=== PATIENT | female | born 1960 | race Caucasian/White ===

== ENCOUNTER → 2023-05-27 13:40 | Outpatient (REF) | payer OTHER, SELFPAY | LOC: RCS 13:40 | PROVIDERS: ATTENDING PHYSICIAN Internal Medicine Cardiovascular Disease; FAMILY PHYSICIAN Nurse Practitioner Family | DX: R07.2 Precordial pain (principal) | CPT/HCPCS: 93017; 93350 ==

== ENCOUNTER 2023-06-14 15:32 | Emergency (ER) | payer OTHER, SELFPAY ==
[2023-06-14 15:36] VITALS: BP 116/66
--- NOTE | 2023-06-14 16:49 | ED.GENMED ---
Addendum entered and electronically signed by Tyler Foster PA-C 06/17/23 07:22:
Urine culture greater than 100,000 colony-forming units of gram-negative bacilli. Treated with Augmentin. Sensitivities pending
Original Note:
History of Present Illness
General
Chief Complaint: Fatigue
Source: patient
Exam Limitations: none
Time Seen by Provider: 06/14/23 16:10
Nursing documentation reviewed up to this point in time: agreed with
Travel History
Have you had any contact with someone who has COVID-19?: No
Do you have any symptoms of coronavirus? Fever > 100 degrees, chills, cough, shortness of breath, sore throat, loss of taste or smell, muscle aches, or headache?: No
History of Present Illness
History of Present Illness:
63-year-old female ex-smoker history of recurrent COVID infections congenital thrombocytopenia worked up in [place] UTIs, ectopic Sjogren's, RA presents with fatigue headache chest pain shortness of breath right flank pain so bad she could
barely get out of bed, no fevers although she tells me she only gets fevers when she is septic, no vomiting, not currently drinking or smoking, states she had some blood work recently her platelet count was low told that she should see a heme-onc
physician tells me she has had tea colored urine, but her kidney stones are on the left not the right
Past History
Past History
ED Past Medical History: Seizures, Psychiatric, Other (Kidney stones RA Sjogren's) and Other (Thrombocytopenia see RN note for further listing of her chronic medical conditions)
ED Past Surgical History: Cholecystectomy and Gynecological
Social History
Tobacco: Non-smoker
Alcohol: None
Drug: None
Employment: Employed
Family History
Family History: Unable to obtain (Thrombocytopenia)
Review of Systems
Review of Systems
All Other Systems: Not applicable
Constitutional: Reports fatigue; Denies fever
EENT: Reports no symptoms
Respiratory: Reports trouble breathing; Denies cough
Cardiac: Reports chest pain; Denies diaphoresis or syncope
: Reports flank pain; Denies frequency or difficulty voiding
Musculoskeletal: Reports no symptoms
Neurological: Reports dizzy, headache and weakness
Endocrine: Reports no symptoms
Phy Exam
Physical Exam
Physical Exam:
Physical Exam
General: 63 female nontoxic stable vitals
Neck: No jaundice no pallor
Heart: s1/s2 regular rate and rhythm, no murmur. equal radial pulses.
Lungs: no acute respiratory distress. clear bilaterally
Abdomen: Nontender
Neuro: alert and oriented. no focal neurological deficits
Skin: no rash
Psychiatric: well kept. interactive and cooperative
Extremities: no edema.
Course
Orders/Labs/Results
Orders:
Orders
06/14/23 16:41
Electrocardiogram (*1) Urgent
Reason for Study: Palpitations
EKG- Treatment ONCE
CR Chest - 2 Views Urgent
Comment:
Reason For Exam: sob
06/14/23 17:01
CPK [Creatine Phosphokinase] Urgent
CRP [C-Reactive Protein] Urgent
Complete Blood Count/With Diff Urgent
Comprehensive Metabolic Panel Urgent
D-Dimer Urgent
ESR [Erythrocyte Sed Rate] Urgent
Troponin I Urgent
06/14/23 17:03
0.9% Sodium Chloride 1000 ml [Nss] 1,000 ml IV BOLUS
Acetaminophen [Tylenol] 650 mg PO NOW STA
06/14/23 19:27
CT Head W/o Iv Contrast Urgent
Comment:
Reason For Exam: headache
06/14/23 19:28
Acetaminophen 1000MG/100Ml [Ofirmev] 1,000 mg in 100 ml IV ONCE
Acetaminophen IV Indication:: No WI & No Enteral Access
06/14/23 19:32
CT Abd/pel Without Iv Or Oral Urgent
Comment:
Reason For Exam: flakn pain
Promethazine [Phenergan] 25 mg 0.9% Sodium Chloride 50 ml [Nss] 50 ml IV NOW
06/14/23 20:51
Urinalysis Reflex To Culture Urgent
Date Specimen was Collected: 06/14/23
Time Specimen was Collected: 16:42
Urine Microscopic Reflex Cult Urgent
Urine Culture Urgent
BAKARI Source: U
Specimen Description:
Date Specimen was Collected: 06/14/23
Time Specimen was Collected: 16:42
Abnormal Lab Results
06/14/23 06/14/23
17:01 20:51
RBC 3.52 L 10^6/uL
(4.20-5.40)
Hgb 11.6 L g/dL
(12.0-16.0)
Hct 33.4 L %
(37.0-47.0)
MCH 33.0 H pg
(27.0-31.0)
Plt Count 69 L 10^3/uL
(130-400)
MPV 12.0 H fL
(7.4-10.4)
ESR 44 H mm/hour
(0-20)
BUN 18 H mg/dl
(7-17)
Glucose 120 H mg/dl
(70-99)
Urine Nitrite (Reflex) Positive A
(Negative)
Leukocyte Esterase Rfl 2+ A
(Negative)
Urine WBC (Reflex) 60-70 A /HPF
(0-5)
Urine Bacteria (Reflex) Many A
(Negative)
06/14/23 17:01
06/14/23 17:01
Vital Signs
Initial and Last Documented VS:
Initial Vital Signs
Temp Pulse Resp BP Pulse Ox
98.0 F 73 18 116/66 99
06/14/23 15:36 06/14/23 15:36 06/14/23 15:36 06/14/23 15:36 06/14/23 15:36
Last Documented Vital Signs
Temp Pulse Resp BP Pulse Ox
98.0 F 75 17 110/67 97
06/14/23 15:36 06/14/23 20:07 06/14/23 19:00 06/14/23 19:00 06/14/23 19:45
MDM/Problems Addressed
Differential Diagnosis Includes:
Differential is wide anemia thrombocytopenia electrolyte abnormality rhabdo ACS PE other
MDM/Problems Addressed:
Fatigue
Chronic conditions affecting care:
Thrombocytopenia RA
Acute Exacerbation and/or Progression of Chronic Illness:
Thrombocytopenia RA
*Pulse Oximetry
Patient hypoxic: no
*EKG
Interpreted by ED Provider?: Yes
Interpretation: normal
Comparison EKG: no comparison EKG present
Heart Rate: 78
Rate: normal
Rhythm: sinus
Ischemia: no ischemia
*Caddie Supervisor Interpretation
Rate: normal
Interpretation: normal
Heart Rate: 78
Rhythm: sinus
*Critical Care Note
Total Time (30-74mins, 75-104mins- exclusive of procedures): Not Applicable
Update Note
Update Note:
7:30 PM labs noted including platelets patient states she feels no better she has a headache she is not eating or drinking she has pain in her kidneys she has not urinated yet states she cannot take any p.o. meds requesting IV meds
Will try IV Tylenol and Phenergan, check CT of the head
10 PM imaging noted urine noted culture pending will start her antibiotics
ED Attending Note
-
Portions of this chart may have been created with voice recognition software.� Occasional wrong word or��sound alike� substitutions may have occurred due to the inherent limitations of voice recognition software.
Discharge Plan
Departure
Patient Disposition: Home (Routine Discharge)
Date of Disposition: 06/14/23
Time of Disposition: 22:02
Patient with high blood pressure during this ER visit?: No
Condition: Good
Discharge Problem:
UTI (urinary tract infection)
Instructions: Fatigue (DC), Urinary Tract Infection, Adult (DC)
Prescriptions:
New
amoxicillin-pot clavulanate 875-125 mg tablet
1 tab PO ONCE Qty: 20 0RF
No Action
clonazepam 1 mg tablet
1 mg PO BID
Patient Comments:
09/07/2022: last filled 08/06/22, 60 tabs for 30 days from [id number]
Rx Instructions:
Usually patient only takes it once a day-per patient
propranolol 60 mg tablet
60 mg PO TID
Rx Instructions:
pt has a script for 40mg TID, but is currently taking the 60mg
oxycodone 5 mg Tablet
5 mg PO Q4HPRN PRN (Reason: moderate pain) Qty: 30 0RF
levofloxacin 750 mg Tablet
750 mg PO DAILY Qty: 16 0RF
Rx Instructions:
last dose 09/28.
phenazopyridine 200 mg tablet
200 mg PO Q8
Referrals:
Mary Gilliland CRNP [Family Provider] -
Interventions
Interventions:
*Risk Screen - Suicide Last Done: 06/14/23 17:15
*General Assessment Last Done: 06/14/23 15:36
*Neglect/Abuse Screening Last Done: 06/14/23 17:15
ED- Fall Risk Assessment Last Done: 06/14/23 17:15
*ED COVID-19 Vaccine History Last Done: 06/14/23 15:36
[2023-06-14 16:56] VITALS: BMI 24.2
[2023-06-14 17:08] LABS: % Basophils 0.4 % (0-2); % Eosinophils 1.4 % (0-6); % Immature Granulocytes 0.4 % (0-0.5); % Lymphocytes 31.1 % (20.5-51.1); % Monocytes 8.6 % (1.7-9.3); % Neutrophils 58.1 % (42.2-75.2); Absolute Eosinophils 0.1 10^3/uL (0-0.7); Absolute Lymphocytes 1.6 10^3/uL (1.2-3.4); Absolute Monocytes 0.4 10^3/uL (0.1-0.6); Absolute Neutrophils 2.9 10^3/uL (1.4-6.5); Hematocrit 33.4 % (37.0-47.0); Hemoglobin 11.6 g/dL (12.0-16.0); Mean Corp Hgb Conc. 34.7 g/dL (33.0-37.0); Mean Corpuscular Volume 94.9 fL (81.0-99.0); Nucleated Red Blood Cells % 0 %; Red Blood Cell Count 3.52 10^6/uL (4.20-5.40); Red Cell Dist. Width 13.2 % (11.5-14.5)
[2023-06-14] MEDS: NSS 1000 IV (17:09)
[2023-06-14 17:18] LABS: Erythrocyte Sed Rate 44 mm/hour (0-20)
[2023-06-14 17:24] LABS: D-Dimer 0.44 ug/mlFEU (0.00-0.50)
[2023-06-14 17:29] LABS: C-Reactive Protein < 5.00 mg/L (0.0-10.00)
[2023-06-14 17:33] LABS: ALT (SGPT) 19 U/L (0-35); AST (SGOT) 35 U/L (14-36); Albumin 4.2 g/dl (3.5-5.0); Alkaline Phosphatase 57 U/L (38-126); Blood Urea Nitrogen 18 mg/dl (7-17); Calcium 8.9 mg/dl (8.4-10.2); Carbon Dioxide 26 mmol/L (22-30); Chloride 107 mmol/L (98-107); Creatine Phosphokinase 39 U/L (30-135); Estimated Creatinine Clearance 48 ml/min; Glucose 120 mg/dl (70-99); Sodium 139 mmol/L (135-145); Total Bilirubin 0.7 mg/dl (0.2-1.3); Total Protein 7.7 g/dl (6.3-8.2); Troponin I < 0.012 ng/ml; eGFR > 60.00
[2023-06-14 17:35] LABS: Comment LSLR; Platelet Count 69 10^3/uL (130-400)
[2023-06-14 18:28] VITALS: BP 103/86
[2023-06-14 19:00] VITALS: BP 110/67
[2023-06-14] MEDS: PHENERGAN 51 MG IV (20:04)
[2023-06-14] MEDS: OFIRMEV 100 IV (20:04)
[2023-06-14 20:12] LABS: Glucose - Point of Care 90 mg/dl (70-99)
[2023-06-14 21:03] LABS: Urine Albumin Trace (Neg - Trace); Urine Bilirubin Negative (Negative); Urine Character Clear (Clear); Urine Color Yellow; Urine Glucose Negative (Negative); Urine Ketone Negative (Negative); Urine Leukocyte 2+ (Negative); Urine Nitrite Positive (Negative); Urine Occult Blood Negative (Negative); Urine Specific Gravity 1.015 (<1.030); Urine Urobilinogen Negative (Neg - 1+)
[2023-06-14 21:18] LABS: Urine White Cell 60-70 /HPF (0-5)
[2023-06-14 21:19] LABS: Urine Bacteria Many (Negative); Urine Red Blood Cell None Seen /HPF (0-2)
[2023-06-14 22:02] VITALS: BP 124/63
[2023-06-14 22:03] VITALS: BP 112/62
== END 2023-06-14 22:18 | disposition home or self-care (01) ==
LOC: EMR 15:32
PROVIDERS: EMERGENCY PHYSICIAN Emergency Medicine; FAMILY PHYSICIAN Nurse Practitioner Family
DX: N39.0 Urinary tract infection, site not specified (principal); D69.42 Congenital and hereditary thrombocytopenia purpura; M06.9 Rheumatoid arthritis, unspecified
CPT/HCPCS: 99285; 96365; 96375; 96361; 70450; 71046; 74176; 80053; 81003; 81015; 82550; 82962; 84484; 85025; 85379; 85652; 86140; 87077; 87086; 87186; 93005

== ENCOUNTER 2023-08-03 09:54 | Emergency (ER) | payer OTHER, SELFPAY ==
[2023-08-03 09:57] VITALS: BP 123/59
[2023-08-03 10:17] VITALS: BMI 24.1
--- NOTE | 2023-08-03 10:30 | ED.GENMED ---
History of Present Illness
<TK Burciaga - Last Filed: 08/03/23 14:52>
General
Chief Complaint: Skin Problem
Source: patient
Exam Limitations: none
Time Seen by Provider: 08/03/23 10:08
Nursing documentation reviewed up to this point in time: agreed with
Travel History
Have you had any contact with someone who has COVID-19?: No
Do you have any symptoms of coronavirus? Fever > 100 degrees, chills, cough, shortness of breath, sore throat, loss of taste or smell, muscle aches, or headache?: No
History of Present Illness
History of Present Illness:
Patient is a 63-year-old female presents to the ER sent by her family doctor. Patient reports 1 week ago (Thursday ) she received shingles vaccine and the following day Thursday morning she developed a fever at 5 AM and since then she has had
persistent fevers highest 104.7 this am . She complains of intense pain to the left upper arm, at the site of the vaccine and feels not well. She denies any runny nose cough congestion denies any URI symptoms. She has some lower abdominal
discomfort and is concerned she may have a UTI as well. She was seen by her family doctor and sent here to the ER. She did take ibuprofen this morning
Past History
<TK Burciaga - Last Filed: 08/03/23 14:52>
Past History
ED Past Medical History: Seizures, Psychiatric, Other (Kidney stones RA Sjogren's) and Other (Thrombocytopenia see RN note for further listing of her chronic medical conditions)
ED Past Surgical History: Cholecystectomy and Gynecological
Social History
Tobacco: Non-smoker
Alcohol: None
Drug: None
Employment: Employed
Family History
Family History: Unable to obtain (Thrombocytopenia)
Review of Systems
<TK Burciaga - Last Filed: 08/03/23 14:52>
Review of Systems
Allergies reviewed?: Yes
All Other Systems: ROS reviewed and negative except as documented in HPI and ROS
Constitutional: Reports fever, fatigue and chills
EENT: Reports no symptoms
Respiratory: Reports no symptoms; Denies cough
Cardiac: Reports no symptoms
ABD/GI: Reports no symptoms
: Reports frequency
Musculoskeletal: Reports other (left upper arm pain /swelling/redness )
Skin: Reports other (swelling/tenderness redness to left upper arm )
Neurological: Reports no symptoms
Psychiatric: Reports no symptoms
Phy Exam
<TK Burciaga - Last Filed: 08/03/23 14:52>
General Physical Exam
General Presentation: well appearing
General age: appears stated age
General Skin: warm and dry
General Habitus: normal
General Mental: alert
General Hydration: appears well hydrated
Gastrointestinal Exam
Gastrointestinal Exam: non tender and soft
Neurological Exam
Neurological Exam: alert and oriented x3
Musculoskeletal Exam
Musculoskeletal Exam: other (Left upper arm is mildly swollen red indurated tender throughout upper arm region)
Skin Exam
Skin Exam: normal color and warm/dry
Psychiatric Exam
Psychiatric Exam: normal mood/affect
Course
<TK Burciaga - Last Filed: 08/03/23 14:52>
Orders/Labs/Results
Orders:
Orders
08/03/23 10:31
IV Insert/Care/Rem.- Treatment PRN
08/03/23 10:39
Complete Blood Count/With Diff Urgent
Comprehensive Metabolic Panel Urgent
Lactic Acid Q4H
Comment: CANCEL 2nd LACTIC ACID IF 1st LACTIC ACID IS LESS THAN 2
Blood Culture Q30M
BAKARI Source: Blood/Venous
Specimen Description:
Blood Culture Q30M
BAKARI Source: Blood/Venous
Specimen Description:
08/03/23 12:26
Ketorolac [Toradol] 15 mg IV NOW STA
08/03/23 13:33
Urine Culture Reflexed from UA [Urinalysis Reflex To Culture] Urgent
Date Specimen was Collected: 08/03/23
Time Specimen was Collected: 13:32
Urine Microscopic Reflex Cult Urgent
08/03/23 14:45
Cephalexin Monohydrate [Keflex] 500 mg PO NOW STA
Abnormal Lab Results
08/03/23 08/03/23
10:39 13:33
RBC 3.43 L 10^6/uL
(4.20-5.40)
Hgb 11.4 L g/dL
(12.0-16.0)
Hct 32.2 L %
(37.0-47.0)
MCH 33.2 H pg
(27.0-31.0)
Plt Count 76 L 10^3/uL
(130-400)
MPV 11.8 H fL
(7.4-10.4)
Abs Immat Gran (auto) 0.1 H 10^3/uL
(0-0.05)
Absolute Monos (auto) 0.8 H 10^3/uL
(0.1-0.6)
Immature Gran % 0.9 H %
(0-0.5)
Monocytes % 14.4 H %
(1.7-9.3)
Sodium 134 L mmol/L
(135-145)
Glucose 106 H mg/dl
(70-99)
Urine Bilirubin 1+ A
(Negative)
Leukocyte Esterase Rfl Trace A
(Negative)
08/03/23 10:39
08/03/23 10:39
Vital Signs
Initial and Last Documented VS:
Initial Vital Signs
Temp Pulse Resp BP Pulse Ox
98.6 F 81 18 123/59 96
08/03/23 09:57 08/03/23 09:57 08/03/23 09:57 08/03/23 09:57 08/03/23 09:57
Last Documented Vital Signs
Temp Pulse Resp BP Pulse Ox
98.6 F 82 18 127/72 96
08/03/23 09:57 08/03/23 14:46 08/03/23 14:46 08/03/23 14:46 08/03/23 14:46
Film Crew Member consulted with Physician
Name of Physician Consulted: Lorna
<Lex Rothman, DO - Last Filed: 08/03/23 16:07>
Orders/Labs/Results
Orders:
Orders
08/03/23 10:31
IV Insert/Care/Rem.- Treatment PRN
08/03/23 10:39
Complete Blood Count/With Diff Urgent
Comprehensive Metabolic Panel Urgent
Lactic Acid Q4H
Comment: CANCEL 2nd LACTIC ACID IF 1st LACTIC ACID IS LESS THAN 2
Blood Culture Q30M
BAKARI Source: Blood/Venous
Specimen Description:
Blood Culture Q30M
BAKARI Source: Blood/Venous
Specimen Description:
08/03/23 12:26
Ketorolac [Toradol] 15 mg IV NOW STA
08/03/23 13:33
Urine Culture Reflexed from UA [Urinalysis Reflex To Culture] Urgent
Date Specimen was Collected: 08/03/23
Time Specimen was Collected: 13:32
Urine Microscopic Reflex Cult Urgent
08/03/23 14:45
Cephalexin Monohydrate [Keflex] 500 mg PO NOW STA
Abnormal Lab Results
08/03/23 08/03/23
10:39 13:33
RBC 3.43 L 10^6/uL
(4.20-5.40)
Hgb 11.4 L g/dL
(12.0-16.0)
Hct 32.2 L %
(37.0-47.0)
MCH 33.2 H pg
(27.0-31.0)
Plt Count 76 L 10^3/uL
(130-400)
MPV 11.8 H fL
(7.4-10.4)
Abs Immat Gran (auto) 0.1 H 10^3/uL
(0-0.05)
Absolute Monos (auto) 0.8 H 10^3/uL
(0.1-0.6)
Immature Gran % 0.9 H %
(0-0.5)
Monocytes % 14.4 H %
(1.7-9.3)
Sodium 134 L mmol/L
(135-145)
Glucose 106 H mg/dl
(70-99)
Urine Bilirubin 1+ A
(Negative)
Leukocyte Esterase Rfl Trace A
(Negative)
08/03/23 10:39
08/03/23 10:39
Vital Signs
Initial and Last Documented VS:
Initial Vital Signs
Temp Pulse Resp BP Pulse Ox
98.6 F 81 18 123/59 96
08/03/23 09:57 08/03/23 09:57 08/03/23 09:57 08/03/23 09:57 08/03/23 09:57
Last Documented Vital Signs
Temp Pulse Resp BP Pulse Ox
98.6 F 82 18 127/72 96
08/03/23 09:57 08/03/23 14:46 08/03/23 14:46 08/03/23 14:46 08/03/23 14:46
<TK Burciaga - Last Filed: 08/03/23 14:52>
MDM/Problems Addressed
Differential Diagnosis Includes:
Not limited to cellulitis, abscess, UTI
MDM/Problems Addressed:
As documented patient is a 63-year-old female who presents to the ER complaining of left arm redness swelling since having shingles vaccine the last week. She complains of fevers but is afebrile here and in no acute distress.
Patient has as document redness mild induration swelling of the left upper arm however is afebrile with a normal white count of 5.8. Patient has chronically low platelets.
Urine was checked that she thought she may have UTI. No obvious infection. Case discussed with Dr. Rothman who evaluated patient will DC with warm compresses Mik wrap and Keflex discussed to remove Mik wrap at night. Discussed close outpatient
follow-up family doctor next days for recheck.
<TK Burciaga - Last Filed: 08/03/23 14:52>
*Critical Care Note
Total Time (30-74mins, 75-104mins- exclusive of procedures): Not Applicable
ED Attending Note
<TK Burciaga - Last Filed: 08/03/23 14:52>
-
Portions of this chart may have been created with voice recognition software.� Occasional wrong word or��sound alike� substitutions may have occurred due to the inherent limitations of voice recognition software.
<Lex Rothman DO - Last Filed: 08/03/23 16:07>
ED Attending Note
Patient seen and examined by attending physician: Yes
ED Attending Note:
I have reviewed and agree with patient treatment plan by Sara Estrella. My exam revealed small indurated area on left upper arm. No signs of abscess, possible small hematoma. Stable for discharge.
Discharge Plan
Departure
Patient Disposition: Home (Routine Discharge)
Date of Disposition: 08/03/23
Time of Disposition: 14:48
Patient with high blood pressure during this ER visit?: No
Condition: Fair
Covid-19: Not Applicable
Discharge Problem:
Cellulitis of arm, left
Instructions: Cellulitis (Skin Infection), Adult (DC)
Prescriptions:
New
cephalexin 500 mg capsule
500 mg PO Q6H Qty: 28 0RF
No Action
clonazepam 1 mg Tablet
2 mg PO HS
propranolol 60 mg Tablet
60 mg PO DAILY
propranolol 60 mg Tablet
60 mg PO BID PRN (Reason: high blood pressure)
tramadol 50 mg Tablet
50 mg PO Q6H PRN (Reason: severe pain)
acetaminophen [Tylenol Extra Strength] 500 mg Tablet
1,000 mg PO Q6H PRN (Reason: fever)
methenamine hippurate 1 gram Tablet
1 g PO BID PRN (Reason: UTI)
Patient Comments:
08/03/2023, prescribed BID but pt. states that she takes BIDPRN.
Referrals:
UNKNOWN - PT DOES,NOT KNOW [Family Provider] -
Activity Restrictions/Additional Instructions:
Warm compresses to affected area several times a day. Antibiotic as directed every 6 hours for the next 7 days. This medication was sent to your pharmacy. You may wear Mik wrap for support during the day but remove at night while sleeping.
Follow-up with your family doctor for recheck in the next 2 days for reevaluation return if any worsening of symptoms of increasing pain swelling redness red streaking fever chills or any further concerns
Interventions
Interventions:
*Risk Screen - Suicide Last Done: 08/03/23 10:17
*General Assessment Last Done: 08/03/23 10:17
*Neglect/Abuse Screening Last Done: 08/03/23 10:17
ED- Fall Risk Assessment Last Done: 08/03/23 10:17
*ED COVID-19 Vaccine History Last Done: 08/03/23 10:17
*Nursing Disposition Last Done: 08/03/23 15:06
ED-Skin Assessment Last Done: 08/03/23 10:17
Discharge Date and Time
Discharge Date/Time: 08/03/23 15:07
Print Language: OCCITAN
[2023-08-03 10:57] LABS: % Basophils 0.5 % (0-2); % Immature Granulocytes 0.9 % (0-0.5); % Monocytes 14.4 % (1.7-9.3); % Neutrophils 55.2 % (42.2-75.2); Absolute Eosinophils 0.1 10^3/uL (0-0.7); Absolute Immature Granulocytes 0.1 10^3/uL (0-0.05); Absolute Lymphocytes 1.6 10^3/uL (1.2-3.4); Absolute Monocytes 0.8 10^3/uL (0.1-0.6); Absolute Neutrophils 3.2 10^3/uL (1.4-6.5); Hematocrit 32.2 % (37.0-47.0); Hemoglobin 11.4 g/dL (12.0-16.0); Mean Corp Hgb Conc. 35.4 g/dL (33.0-37.0); Mean Corpuscular Hgb 33.2 pg (27.0-31.0); Mean Corpuscular Volume 93.9 fL (81.0-99.0); Mean Platelet Volume 11.8 fL (7.4-10.4); Nucleated Red Blood Cells % 0 %; Platelet Count 76 10^3/uL (130-400); Red Blood Cell Count 3.43 10^6/uL (4.20-5.40); Red Cell Dist. Width 13.3 % (11.5-14.5); White Blood Cell Count 5.8 10^3/uL (4.8-10.8)
[2023-08-03 11:12] LABS: Lactic Acid 1.4 mmol/L (0.7-2.0)
[2023-08-03 11:14] VITALS: BP 121/63
[2023-08-03 11:14] LABS: ALT (SGPT) 14 U/L (0-35); AST (SGOT) 30 U/L (14-36); Albumin 4.2 g/dl (3.5-5.0); Alkaline Phosphatase 69 U/L (38-126); Blood Urea Nitrogen 17 mg/dl (7-17); Calcium 9.1 mg/dl (8.4-10.2); Carbon Dioxide 24 mmol/L (22-30); Chloride 102 mmol/L (98-107); Estimated Creatinine Clearance 68 ml/min; Glucose 106 mg/dl (70-99); Potassium 4.2 mmol/L (3.5-5.1); Sodium 134 mmol/L (135-145); Total Bilirubin 0.8 mg/dl (0.2-1.3); Total Protein 7.8 g/dl (6.3-8.2); eGFR > 60.00
[2023-08-03] MEDS: TORADOL 15 MG IV (12:38)
[2023-08-03 13:03] VITALS: BP 124/68
[2023-08-03 13:47] LABS: Urine Albumin Negative (Neg - Trace); Urine Bilirubin 1+ (Negative); Urine Character Clear (Clear); Urine Color Yellow; Urine Glucose Negative (Negative); Urine Ketone Negative (Negative); Urine Leukocyte Trace (Negative); Urine Nitrite Negative (Negative); Urine Occult Blood Negative (Negative); Urine Specific Gravity 1.015 (<1.030); Urine Urobilinogen Negative (Neg - 1+)
[2023-08-03 14:23] LABS: Urine Mucus Few
[2023-08-03 14:24] LABS: Urine Amorphous Seen; Urine Red Blood Cell 0-2 /HPF (0-2); Urine White Cell 0-2 /HPF (0-5)
[2023-08-03 14:46] VITALS: BP 127/72
[2023-08-03] MEDS: KEFLEX 500 MG PO (14:55)
== END 2023-08-03 15:07 | disposition home or self-care (01) ==
LOC: EMR 09:54
PROVIDERS: Nurse Practitioner; EMERGENCY PHYSICIAN Emergency Medicine
DX: L03.114 Cellulitis of left upper limb (principal)
CPT/HCPCS: 99284; 96374; 80053; 81003; 81015; 83605; 85025; 87040